=== PATIENT | female | born 1985 | race Caucasian/White ===

== ENCOUNTER → 2017-10-26 | Outpatient (CLI) | payer BC | END | disposition home or self-care (01) | LOC: C.PAPS 12:28 | PROVIDERS: ATTEND Obstetrics & Gynecology | DX: Z01.419 Encounter for gynecological examination (general) (routine) without abnormal findings (principal) ==

== ENCOUNTER 2024-01-10 06:00 | Observation (INO) ==
--- NOTE | 2024-01-03 13:07 | Anesthesiology Consultation ---
Date of Service January 03, 2024 Assessment & Plan Chart Review Chart Review: Acceptable Risk for Surgery and Patient NOT seen in Pre Admission Testing History Surgery Operation Date: 01/10/24 07:30 Proposed Procedures p Bilateral Upper Blepharoplasty - Anh Castro MD s Panniculectomy - Anh Castro MD s with Add On Abdominoplasty - Anh Castro MD Height/Weight Height: 5 ft 3 in Weight: 62.142 kg Allergies Allergy/AdvReac Type Severity Reaction Status Date / Time cephalexin Allergy Intermediate Hives Verified 12/30/23 07:51 petrolatum, yellow Allergy Mild BLISTERS Verified 05/03/23 13:48 vancomycin Allergy Unknown fela Verified 12/30/23 07:33 syndrome hydrocodone AdvReac Mild ITCHING Verified 05/03/23 13:48 Medications Home Medications Medication Instructions Recorded Confirmed Last Taken levonorgestrel 21 mcg/24 hr (up to 1 device intrauterine UD 10/14/18 12/30/23 Unknown 8 years) 52 mg intrauterine device multivitamin 1 tab PO DAILY 05/03/23 12/30/23 Unknown lorazepam 1 mg tablet (Ativan) 1 mg PO BID PRN anxiety #10 tabs 12/23/23 12/23/23 Unknown tramadol 50 mg tablet 50 mg PO Q6H PRN pain #14 tabs 12/23/23 12/23/23 Unknown dextroamphetamine-amphetamine ER 20 mg PO BID 12/30/23 12/30/23 Unknown 20 mg 24hr capsule,extend release Past Medical History Medical History History of syncope last episode 10/2023; follows w/ cardio; attributed to dehydration, excercise and not eating enough Hypotension follows w/ Cardio. [facility] Andriy Chiang History of varicella History of fracture of pelvis ~2003 IUD (intrauterine device) in place Placed 10/2013 (outside facility) Past Family History Family History Other Diabetes Heart disease Past Surgical History Surgical History History of esophagogastroduodenoscopy (EGD) Hx of colonoscopy History of knee surgery 2004 History of gastric surgery gastric sleeve 4/12/22 History of wisdom tooth extraction History of section, low transverse x 2 Social History Smoking Status: Never smoker Do You Dip or Chew Tobacco: No Hx Alcohol Use: No Hx Substance Use: No substance use type: does not use
[2024-01-10] MEDS ORDERED: fentaNYL citrate PF 100 MCG/2 ML VIAL ONE ×3 (06:06→09:36)
[2024-01-10] MEDS ORDERED: LIDOCAINE 2% 2 ML VIAL/AMP(20MG/ML) INFIL ONE (06:06)
[2024-01-10] MEDS ORDERED: MIDAZOLAM HCL 1 MG/ML 2ML VIAL ONE (06:06)
[2024-01-10] MEDS ORDERED: PROPOFOL IV EMULSION 10 MG/ML 20 ML VIAL IV ONE (06:06)
[2024-01-10] MEDS ORDERED: ROCURONIUM BROMIDE 10 MG/ML 5 ML VIAL IV ONE ×3 (06:06→10:46)
[2024-01-10] MEDS ORDERED: DEXAMETHASONE SOD INJ 4 MG/ML VIAL ONE (06:06)
[2024-01-10] MEDS ORDERED: ONDANSETRON INJ 2 MG/ML 2 ML VIAL ONE ×2 (06:06→09:42)
[2024-01-10] MEDS: LACTATED RINGER'S 1,000 ML IV SCH (06:45)
--- NOTE | 2024-01-10 06:46 | History & Physical Bridge Note ---
Date of Service January 10, 2024 History & Physical Bridge Note I have examined the patient, reviewed the History & Physical and in the interval since the performance of the History & Physical I have noted the following changes of clinical significance: no changes in medical history. Patient has decided against abdominoplasty/rectus plication and will proceed with panniculectomy and upper blepharoplasty only. New consent obtained.
[2024-01-10] MEDS ORDERED: ONDANSETRON INJ 2 MG/ML 2 ML VIAL IV PRN ×2 (07:05→13:22)
[2024-01-10] MEDS ORDERED: ePHEDrine sulfate 50 MG/ML AMP IV PRN (07:05)
[2024-01-10] MEDS ORDERED: HYDROmorphone INJ 1 MG/ML SYRINGE IV PRN (07:05)
[2024-01-10] MEDS ORDERED: ATROPINE SULFATE 0.1 MG/ML 10ML SYR IV PRN (07:05)
[2024-01-10] MEDS: TRANEXAMIC ACID 1,000 MG **IV Pre-op IV SCH (07:23)
[2024-01-10] MEDS: CLINDAMYCIN/D5W 900 MG/50 ML BAG IV SCH (07:28)
[2024-01-10] MEDS ORDERED: PHENYLEPHRINE 100MCG/ML 5ML SYR ONE (08:06)
[2024-01-10] MEDS ORDERED: ePHEDrine sulfate 50 MG/5 ML SYR ONE (08:06)
[2024-01-10] MEDS: TRANEXAMIC ACID 1000 MG IV SCH (09:46)
[2024-01-10] MEDS: EpINEphrine HCL INJ 1 MG/ML 1ML SYRINGE IR ONE (10:06)
[2024-01-10] MEDS: POVIDONE-IODINE OP SOLN 30 ML BTL ONE (10:06)
[2024-01-10] MEDS: LIDOCAINE 1% LOCAL 20 ML VIAL ONE (10:06)
[2024-01-10] MEDS: GENTIAN VIOLET ONE (11:05)
[2024-01-10] MEDS: BUPIVACAINE 0.5 % 5 MG/1 ML MPF 30ML VIAL ONE (11:06)
[2024-01-10] MEDS: BUPIVACAINE 0.25% PF 30 ML VIAL ONE (11:24)
[2024-01-10] MEDS: LIDOCAINE 1%/EPINEPHRINE 1:100,000 50 ML VIAL ONE (11:24)
[2024-01-10] MEDS: ERYTHROMYCIN OP OINT 5 MG/GM 3.5 GM TUBE ONE (11:34)
[2024-01-10] MEDS: BACITRACIN OINT 14 GM TUBE ONE (11:34)
--- NOTE | 2024-01-10 11:38 | Post Operative Brief Note ---
PG Immediate Post Op with CF Date of Surgery January 10, 2024 Pre & Post Diagnosis Operation Date: 01/10/24 07:30 Pre-Op Diagnosis: Dermatochalasis Both Upper Eyelids, Abdominal Pannus Post-Op Diagnosis: Dermatochalasis Both Upper Eyelids, Abdominal Pannus I identified the patient and participated in the time-out.: Yes Procedure Operation Date: 01/10/24 07:30 Actual Procedures p Bilateral Upper Blepharoplasty(Bilateral) - Anh Castro MD s Panniculectomy(Not Applicable) - Anh Castro MD Surgeon Anh Castro MD Human Resources Executive Apple Amaya PA-C Estimated Blood Loss 25 Findings Consistent with Post-Op Diagnosis Specimens Specimen Description: A. Epidermal Cyst B. Abdominal Pannus Drains [place] Drain (15 fr x2) and Maloney Catheter
[2024-01-10] MEDS ORDERED: SUGAMMADEX SODIUM 200 MG/2 ML VIAL IV ONE (11:50)
--- NOTE | 2024-01-10 11:52 | Operative Report ---
PG Post Operative Report Pre & Post Diagnosis Operation Date: 01/10/24 07:30 Pre-Op Diagnosis: Dermatochalasis Both Upper Eyelids, Abdominal Pannus Post-Op Diagnosis: Dermatochalasis Both Upper Eyelids, Abdominal Pannus I identified the patient and participated in the time-out.: Yes Procedure Operation Date: 01/10/24 07:30 Actual Procedures p Bilateral Upper Blepharoplasty(Bilateral) - Anh Castro MD s Panniculectomy(Not Applicable) - Anh Castro MD Surgeon Anh Castro MD Customer Care Representative Apple Amaya PA-C Estimated Blood Loss 25 Findings Consistent with Post-Op Diagnosis Specimens epidermal cyst umbilicus abdominal pannus Drains JPx2 Anesthesia Type General Complications none Indications s/p 180 lb weight loss resulting in abdominal pannus and refractory intertrigo of the skin fold bilateral superior visual field loss secondary to upper eyelid dermatochalasis with excess skin weighing down lids Description of Procedure Risks, benefits, and alternatives of the procedure were explained to the patient who agreed and signed consent. She was identified and marked in the preoperative holding area. She was brought to the operating room where she was positioned supine and placed under general anesthesia without incident. Maloney catheter was placed. Surgical site was prepped and draped sterilely. A time-out procedure was performed. I began with the panniculectomy portion of the procedure. I reassessed my markings which included a lower horizontal abdominal incision with the midportion 7 cm above the vulvar commissure. Incision was marked bilaterally to the ASIS. I began by injecting 1% lidocaine with epinephrine along the planned incision. The lower abdominal incision was made using a 15-blade scalpel to incise epidermis and superficial dermis followed by electrocautery to incise deep dermis, subcutaneous fat, Adamaris's fascia down to the abdominal wall. Care was taken to bevel superiorly in order to avoid encountering the inguinal region. Electrocautery was used to elevate the anterior abdominal skin flap ligating the perforating vessels with 3-0 Vicryl ties and electrocautery. Dissection was carried up to the level of the umbilicus in the midline. At this point, a 15-blade scalpel was used to circumscribe the umbilicus. A vertical midline incision was then made from the incision to the umbilicus and divided in the midline using electrocautery. The umbilicus was then dissected out using electrocautery down to abdominal wall. The umbilical stalk appeared viable throughout the procedure. A 1 cm epidermal cyst associated with an umbilical piercing was noted and was dissected free using a curved iris scissor and electrocautery. In order to facilitate inset of the umbilicus, dissection was continued for about an additional 8 cm superior to the umbilicus. At this point, the bed was flexed and the mid portion of the superior skin flap was inset above the mons pubis using 2-0 Vicryl suture. Skin flaps were marked for excision. A 15-blade scalpel was used to make these incisions and the incision was deepened through dermis, subcutaneous fat, Adamaris's fat using electrocautery. A 15 [place] drains were placed in the wound bed and brought out through a separate stab incision in the mons pubis. Prior to closure, a total of 10 mL of 0.25% Marcaine plain were injected into the fascia as well as along the incisions. The drains were sutured into place using 3-0 nylon. The umbilicus was brought out through an inverted triangular incision in the abdominal wall. Wound closure was then begun lateral to medial using 2-0 Vicryl Adamaris's fascia sutures, 2-0 Vicryl deep dermal sutures, 2-0 PDO running superficial Quill suture, 3-0 Monocryl running subcuticular suture. Umbilicus was brought out through the inverted triangle incision and was sutured into place using 4-0 chromic half buried horizontal mattress sutures. The umbilicus was dressed using Adaptic and the incision was dressed using Dermabond Prineo followed by dry dressings and an abdominal binder. Attention was then turned to the upper blepharoplasty. The surgical site was prepped and draped sterilely. Surgical markings were assessed. I began by marking the supratarsal crease 7 mm above the ciliary margin in the mid pupillary line. This fell along the natural supratarsal crease. Incision was carried medially toward the medial punctum taking care not to extend the incision beyond the medial punctum and laterally into the lateral [place]hal area. Superior portion of the incision was then marked. This was marked about 1 cm below the lateral tail of the brow. Similar markings were applied on the right side with reasonable symmetry. 1% lidocaine with epinephrine was used to anesthetize the planned incisions bilaterally. I began with the left side. A 15 blade scalpel was used to make the incisions. Electrocautery was used to dissect the skin off of the underlying orbicularis muscle. Hemostasis was achieved throughout this process using electrocautery. The excision was performed in a lateral to medial direction. I did attempt to open the medial fat compartment with minimal return of fat, which was cauterized down. After assuring hemostasis, I began wound closure placing a 6-0 nylon centrally in the mid pupillary line, taking a bite of skin and orbicularis muscle, then closure was begun lateral to medial using 6-0 nylon interrupted sutures. A similar procedure was undertaken on the right side. There was reasonable symmetry at the end of the case. Eyes were able to be closed without evidence of lagophthalmos. The procedure was tolerated well. Antibiotic ointment was applied to the eye incisions. The patient was awakened and transferred to recovery in satisfactory condition.The procedure was tolerated well. The patient was awakened and transferred to recovery in satisfactory condition. Apple Amaya PA-C was present and scrubbed throughout the entire procedure and was instrumental in providing retraction, hemostasis and assisting in simultaneous wound closure. I attest to the content of the Intraoperative Record and any orders documented therein. Any exceptions are noted below.
[2024-01-10] MEDS: PROMETHAZINE HCL 6.25 MG in SODIUM CHLORIDE 0.9% 50 ML IV PRN (12:11)
[2024-01-10] MEDS: fentaNYL citrate PF 100 MCG/2 ML VIAL IV PRN (12:12)
[2024-01-10] MEDS ORDERED: MoRPHine SULFATE 2 MG/ML CARP IV PRN (13:22)
[2024-01-10] MEDS ORDERED: LORazepam 0.5 MG TAB PO PRN (13:22)
[2024-01-10] MEDS ORDERED: diphenhydrAMINE Capsule 25 MG CAP PO PRN (13:22)
[2024-01-10] MEDS ORDERED: MoRPHine SULFATE 4 MG/ML 1 ML CARP\\VIAL IV PRN (13:22)
[2024-01-10] MEDS ORDERED: PROMETHAZINE 12.5 MG/50.5 ML BAG IV PRN (13:22)
[2024-01-10] MEDS ORDERED: diphenhydrAMINE 50 MG/ML VIAL IV PRN (13:22)
[2024-01-10] MEDS ORDERED: oxyCODONE HCL IR 5 MG TAB (IMMEDIATE RELEASE) PO PRN (13:22)
--- NOTE | 2024-01-10 13:22 | Anesthesiology Progress Note ---
Date of Service January 10, 2024 Anesthesia Post Procedure Vital Signs Vital Signs: Temp Pulse Pulse Resp BP Pulse Ox O2 Del Method 01/10/24 12:45 36.4 C L 82 17 112/69 99 Room Air 01/10/24 12:35 78 18 109/71 100 Nasal Cannula 01/10/24 12:25 73 12 119/69 100 Nasal Cannula 01/10/24 12:15 77 13 117/72 100 Nasal Cannula 01/10/24 12:05 82 18 118/71 100 Nasal Cannula 01/10/24 11:55 36.1 C L 93 H 12 118/71 100 Nasal Cannula 01/10/24 06:24 36.8 C 77 18 98/59 L 100 Room Air O2 Flow Rate 01/10/24 12:45 01/10/24 12:35 2 01/10/24 12:25 2 01/10/24 12:15 2 01/10/24 12:05 2 01/10/24 11:55 2 01/10/24 06:24 Pain Intensity Lower Abdomen: Pain Intensity: 2 Transfer of Care Handoff Completed per policy Notes Mental Status: alert / awake / arousable and participated in evaluation Patient Amnestic to Procedure: Yes Nausea / Vomiting: adequately controlled Pain: adequately controlled Airway Patency, RR, SpO2: stable & adequate BP & HR: stable & adequate Hydration State: stable & adequate Anesthetic Complications: no major complications apparent and Pt Satisfied with anesthetic care
[2024-01-10] MEDS: SODIUM CHLORIDE 0.9% 50 ML BAG ONE (14:00)
[2024-01-10] MEDS: PROMETHAZINE HCL INJ 25 MG/ML 1 ML VIAL ONE (14:00)
[2024-01-10] MEDS: CLINDAMYCIN/D5W 600 MG/50 ML BAG IV SCH (15:55)
[2024-01-10] MEDS: DEXTROAMPHETAMINE/AMPHETAMINE ER 20 MG CAP PO SCH (15:56)
[2024-01-10] MEDS: oxyCODONE HCL IR 5 MG TAB (IMMEDIATE RELEASE) PO PRN (16:02)
[2024-01-10] MEDS: ACETAMINOPHEN 325 MG TAB PO PRN (20:11)
[2024-01-11 06:44] LABS: Hematocrit (blood only) 29.8 % (37.0-47.0); Hemoglobin 10.1 g/dl (12.0-16.0)
[2024-01-11] MEDS: LACTATED RINGER'S 500 ML IV ONE (06:59)
--- NOTE | 2024-01-11 07:13 | Surgery Progress Note ---
Date of Service January 11, 2024 Assessment & Plan (1) S/P panniculectomy: Plan Patient hypotensive by asx. Will get H&H and LR bolus, switch pain medication to tramadol. There is no concern for active bleeding based on clinical exam findings. If BP stabilizes, she may d/c home later today with office follow-up tomorrow. Admission and Anticipated Discharge Date Admission Date: January 10, 2024 Supervising Physician Co-Signing Physician Notes hgb 10.1. BP improved. Per PA exam no signs of active bleeding. If BP remains improved ok for discharge Kristian Becerril is POD#1 s/p panniculectomy and upper blepharoplasty. She is doing well, complains of no pain. She is using ice on her eyes. Maloney removed, has not ambulated to void. This AM when she tried to get OOB BP was low. She remains asymptomatic. Physical Exam Physical Exam: upper eyelids intact, appropriate edema drains with scant serosang output, abdominal incision is intact, no ecchymosis Results & Data Vital Signs (Past 12 Hours) Vital Signs Temp Pulse Resp BP Pulse Ox O2 Del Method 01/11/24 06:05 68 19 97 Room Air 01/11/24 06:00 92/53 L 01/11/24 05:57 78/46 L 01/11/24 04:04 93/50 L 01/11/24 04:04 36.6 C 79 16 83/47 L 98 Room Air 01/10/24 23:21 36.9 C 85 16 90/52 L 98 Room Air 01/10/24 21:09 36.9 C 19 Room Air 01/10/24 19:23 36.8 C 82 16 97/60 L 98 Room Air PG Care Time/CCT Total # of Minutes Spent Total Time Spent with Patient: Total time spent is greater than 50% in coordination of care (as documented) at patient's floor/unit and/or counseling patient: Coding Level of Care Code 48887 Post Operative Follow-Up Diagnoses S/P panniculectomy Z98.890
[2024-01-11 07:35] VITALS: PULSE 66; RESP 16; TEMP 98.2; O2SAT 100
[2024-01-11 07:53] VITALS: BP 98/52
[2024-01-11] MEDS: traMADol HCL 50 MG TABLET PO PRN (07:53)
[2024-01-11] MEDS: MULTIVITAMIN TAB PO SCH (08:05)
== END 2024-01-11 10:10 | disposition home or self-care (01) ==
LOC: ASU 06:00 → 3N 06:00